=== PATIENT | male | born 1975 | race Caucasian/White ===

== ENCOUNTER 2025-01-01 23:35 | Day surgery (SDC) | payer BC, SELFPAY ==
[2025-01-01] VITALS (9 sets, daily range): BP systolic 144–167; BP diastolic 90–107; BMI 39.6; BMI 38.5
[2025-01-01 17:47] LABS: % Basophils 0.9 % (0-2); % Eosinophils 1.9 % (0-6); % Immature Granulocytes 0.2 % (0-0.5); % Lymphocytes 23.8 % (20.5-51.1); % Monocytes 8.7 % (1.7-9.3); % Neutrophils 64.5 % (42.2-75.2); Absolute Basophils 0.1 10^3/uL (0-0.2); Absolute Eosinophils 0.2 10^3/uL (0-0.7); Absolute Lymphocytes 2.5 10^3/uL (1.2-3.4); Absolute Monocytes 0.9 10^3/uL (0.1-0.6); Absolute Neutrophils 6.8 10^3/uL (1.4-6.5); Hematocrit 46.1 % (39.0-52.0); Hemoglobin 16.2 g/dL (13.0-18.0); Mean Corp Hgb Conc. 35.1 g/dL (33.0-37.0); Mean Corpuscular Hgb 29.8 pg (27.0-31.0); Mean Corpuscular Volume 84.9 fL (80.0-94.0); Mean Platelet Volume 10.2 fL (7.4-10.4); Nucleated Red Blood Cells % 0 % (-); Platelet Count 221 10^3/uL (130-400); Red Blood Cell Count 5.43 10^6/uL (4.70-6.10); Red Cell Dist. Width 13.3 % (11.5-14.5); White Blood Cell Count 10.5 10^3/uL (4.8-10.8)
[2025-01-01 18:04] LABS: ALT (SGPT) 23 U/L (0-50); AST (SGOT) 22 U/L (17-59); Albumin 4.4 g/dl (3.5-5.0); Alkaline Phosphatase 45 U/L (38-126); Blood Urea Nitrogen 18 mg/dl (9-20); Calcium 9.9 mg/dl (8.4-10.2); Carbon Dioxide 30 mmol/L (22-30); Chloride 105 mmol/L (98-107); Glucose 115 mg/dl (70-99); Lipase 90 U/L (23-300); Potassium 4.6 mmol/L (3.5-5.1); Sodium 141 mmol/L (135-145); Total Bilirubin 0.8 mg/dl (0.2-1.3); Total Protein 7.5 g/dl (6.3-8.2); eGFR > 60.00
--- NOTE | 2025-01-01 18:12 | ED.GENMED ---
History of Present Illness
<KVNG Camara - Last Filed: 01/01/25 22:41>
General
Chief Complaint: Abdominal Pain
Source: patient
Exam Limitations: none
Time Seen by Provider: 01/01/25 18:11
Nursing documentation reviewed up to this point in time: agreed with
History of Present Illness
History of Present Illness:
Patient is a 49-year-old male who presents to the ER for evaluation. Patient started with epigastric pain yesterday. He reports it kept him up throughout the night and persisted today. He does feel little nauseous with this. He now feels a
little bit in his right back. He denies any lower abdominal discomfort. Denies any vomiting diarrhea. Patient denies any urinary frequency urgency or dysuria. Denies any hematuria. He does report that he is on Mounjaro and this is his third
month on Mounjaro. He has had no issues so far.
Past History
<KVNG Camara - Last Filed: 01/01/25 22:41>
Past History
ED Past Medical History: Arrthythmia (SVT that was treated with radio ablation at age 15 with no further problems ), HTN and Other (Kidney stones, gallstones)
ED Past Surgical History: Cardiac (Radiofrequency ablation for SVT at age 15 )
Social History
Tobacco: Non-smoker
Alcohol: Occasional
Drug: Marijuana
Personal:
Living: with family
Employment: Employed
Family History
Family History: Negative Diabetes, Hypertension or CAD
Review of Systems
<KVNG Camara - Last Filed: 01/01/25 22:41>
Review of Systems
Allergies reviewed?: Yes
All Other Systems: ROS reviewed and negative except as documented in HPI and ROS
Constitutional: Reports no symptoms; Denies fever, fatigue or chills
EENT: Reports no symptoms
Respiratory: Reports no symptoms
ABD/GI: Reports abdominal pain and nausea; Denies vomiting, diarrhea or constipated
: Reports no symptoms
Musculoskeletal: Reports no symptoms
Skin: Reports no symptoms
Neurological: Reports no symptoms
Psychiatric: Reports no symptoms
Phy Exam
<KVNG Camara - Last Filed: 01/01/25 22:41>
General Physical Exam
General Presentation: no apparent distress
General age: appears stated age
General Skin: warm and dry
General Habitus: normal
General Mental: alert
General Hydration: appears well hydrated
Gastrointestinal Exam
Gastrointestinal Exam: soft and other (mild ruq tenderness )
Neurological Exam
Neurological Exam: alert and oriented x3
Musculoskeletal Exam
Musculoskeletal Exam: full ROM
Skin Exam
Skin Exam: normal color and warm/dry
Course
<KVNG Camara - Last Filed: 01/01/25 22:41>
Orders/Labs/Results
Orders:
Orders
01/01/25 17:35
Electrocardiogram (*1) Urgent
Reason for Study: Abdominal Pain
EKG- Treatment ONCE
01/01/25 17:39
Complete Blood Count/With Diff Urgent
Comprehensive Metabolic Panel Urgent
Lipase Urgent
Troponin I Urgent
01/01/25 18:19
IV Insert/Care/Rem.- Treatment PRN
0.9% Sodium Chloride 1000 ml [Nss] 1,000 ml IV BOLUS
Ketorolac [Toradol] 15 mg IV NOW STA
Ondansetron Injectable [Zofran] 4 mg IV NOW STA
US Abdomen Complete/Upper Urgent
Comment:
Reason For Exam: epigastric pain
01/01/25 20:33
Mag Hydrox/Al Hydrox/Simeth [Maalox] 30 ml Phenobarb/Hyoscy/Atropine/Scop [] 10 ml PO NOW
01/01/25 20:35
Mag Hydrox/Al Hydrox/Simeth [Maalox] 30 ml .ROUTE .STK-MED ONE
Phenobarb/Hyoscy/Atropine/Scop [] 10 ml .ROUTE .STK-MED ONE
01/01/25 22:34
Pantoprazole [Protonix IV] 40 mg IV NOW STA
Abnormal Lab Results
01/01/25
17:39
Absolute Neuts (auto) 6.8 H 10^3/uL
(1.4-6.5)
Absolute Monos (auto) 0.9 H 10^3/uL
(0.1-0.6)
Glucose 115 H mg/dl
(70-99)
01/01/25 17:39
01/01/25 17:39
Vital Signs
Initial and Last Documented VS:
Initial Vital Signs
Temp Pulse Resp BP Pulse Ox
97.7 F 71 18 161/107 97
01/01/25 17:32 01/01/25 17:32 01/01/25 17:32 01/01/25 17:32 01/01/25 17:32
Last Documented Vital Signs
Temp Pulse Resp BP Pulse Ox
98.4 F 58 14 151/98 96
01/01/25 18:00 01/01/25 20:42 01/01/25 20:42 01/01/25 20:42 01/01/25 20:42
<Aniket Pulliam MD - Last Filed: 01/01/25 22:31>
Orders/Labs/Results
Orders:
Orders
01/01/25 17:35
Electrocardiogram (*1) Urgent
Reason for Study: Abdominal Pain
EKG- Treatment ONCE
01/01/25 17:39
Complete Blood Count/With Diff Urgent
Comprehensive Metabolic Panel Urgent
Lipase Urgent
Troponin I Urgent
01/01/25 18:19
IV Insert/Care/Rem.- Treatment PRN
0.9% Sodium Chloride 1000 ml [Nss] 1,000 ml IV BOLUS
Ketorolac [Toradol] 15 mg IV NOW STA
Ondansetron Injectable [Zofran] 4 mg IV NOW STA
US Abdomen Complete/Upper Urgent
Comment:
Reason For Exam: epigastric pain
01/01/25 20:33
Mag Hydrox/Al Hydrox/Simeth [Maalox] 30 ml Phenobarb/Hyoscy/Atropine/Scop [] 10 ml PO NOW
01/01/25 20:35
Mag Hydrox/Al Hydrox/Simeth [Maalox] 30 ml .ROUTE .STK-MED ONE
Phenobarb/Hyoscy/Atropine/Scop [] 10 ml .ROUTE .STK-MED ONE
01/01/25 22:34
Pantoprazole [Protonix IV] 40 mg IV NOW STA
Abnormal Lab Results
01/01/25
17:39
Absolute Neuts (auto) 6.8 H 10^3/uL
(1.4-6.5)
Absolute Monos (auto) 0.9 H 10^3/uL
(0.1-0.6)
Glucose 115 H mg/dl
(70-99)
01/01/25 17:39
01/01/25 17:39
Vital Signs
Initial and Last Documented VS:
Initial Vital Signs
Temp Pulse Resp BP Pulse Ox
97.7 F 71 18 161/107 97
01/01/25 17:32 01/01/25 17:32 01/01/25 17:32 01/01/25 17:32 01/01/25 17:32
Last Documented Vital Signs
Temp Pulse Resp BP Pulse Ox
98.4 F 58 14 151/98 96
01/01/25 18:00 01/01/25 20:42 01/01/25 20:42 01/01/25 20:42 01/01/25 20:42
<KVNG Camara - Last Filed: 01/01/25 22:41>
MDM/Problems Addressed
Differential Diagnosis Includes:
not limited to: gastritis, biliary colic
MDM/Problems Addressed:
As documented patient is a 49-year-old male who presented with epigastric pain nausea with some radiation to right back since yesterday. Patient denies any fever chills presents in no acute distress labs unremarkable including normal LFTs normal
white count. He is afebrile ultrasound however does show cholelithiasis with at least 1 stone in the vicinity of the gallbladder neck gallbladder wall is top normal. Patient was given Toradol which did start to improve his symptoms but then
symptoms started reoccurring in addition he was given a GI cocktail which seemed to help again slightly but then symptoms reoccurred. After medications patient was reevaluated and does not feel that he would be able to sleep with this pain. It is
likely biliary colic versus gastritis, GERD with persistent pain would recommend admission. Patient was evaluated by ED physician. Will give IV Protonix.
<KVNG Camara - Last Filed: 01/01/25 22:41>
*Radiology
Radiology exam reviewed: radiology read reviewed
*Pulse Oximetry
Patient hypoxic: no
*Critical Care Note
Total Time (30-74mins, 75-104mins- exclusive of procedures): Not Applicable
ED Attending Note
<KVNG Camara - Last Filed: 01/01/25 22:41>
-
Portions of this chart may have been created with voice recognition software.� Occasional wrong word or��sound alike� substitutions may have occurred due to the inherent limitations of voice recognition software.
<Aniket Pulliam MD - Last Filed: 01/01/25 22:31>
ED Attending Note
Patient seen and examined by attending physician: Yes
I performed the substantive portion of visit, reviewed & personally made and approve the management plan that is documented in note by myself or DAVID.: Yes
ED Attending Note:
49-year-old male complaining of epigastric pain. Some radiation to the back. Started yesterday. Continuous. Moderate nature now this pain management. Some nausea. No chest pain shortness of breath or other complaints.
On exam patient is nontoxic in no distress. Lungs clear and equal. Heart regular rate and rhythm no murmur. Abdomen soft. No distention. Moderate epigastric tenderness. Minimal extension to the right upper quadrant. No rebound or guarding or
mass or hernia.
Labs are all stable. Cardiac testing stable. There is a stone that may be wedged in the neck of the gallbladder. Differential would include gastritis/abdominal symptoms possibly related to his medication versus a stone wedged in the neck of the
gallbladder. Given ongoing symptoms patient warrants inpatient management
Discharge Plan
Departure
Prescriptions:
No Action
lisinopril 10 MG tablet
10 mg PO DAILY
escitalopram oxalate 10 MG tablet
10 mg PO DAILY
Mounjaro 5 mg/0.5 mL Pen Injector
5 mg SC QWEEK
Referrals:
Luann Price, [Family Provider] -
Interventions
Interventions:
*Risk Screen - Suicide Last Done: 01/01/25 17:32
*General Assessment Last Done: 01/01/25 17:32
*Neglect/Abuse Screening Last Done: 01/01/25 17:32
*ED- Fall Risk Assessment Last Done: 01/01/25 18:41
*ED COVID-19 Vaccine History Last Done: 01/01/25 17:32
XL-Njhjzu-Nacolnemax Assessment Last Done: 01/01/25 18:41
Discharge Date and Time
Print Language: NORWEGIAN
[2025-01-01 18:15] LABS: Troponin I < 0.012 ng/ml
[2025-01-01] MEDS: TORADOL 15 MG IV (18:30)
[2025-01-01] MEDS: ZOFRAN 4 MG IV (18:30)
[2025-01-01] MEDS: NSS 1000 IV ×2 (18:30→23:55)
[2025-01-01] MEDS: MAALOX 40 PO (20:36)
[2025-01-01] MEDS: PROTONIX IV 40 MG IV (22:41)
--- NOTE | 2025-01-01 22:46 | HPS.HSE ---
Addendum entered and electronically signed by Fred Silva DO 01/01/25 23:49:
Patient seen and examined independently. Agree with findings and plan as set forth by Callie Diehl PA-C.
Patient is a 49y M with PMH significant for hypertension and obesity who presents to ED complaining of abdominal pain x 2 days. Patient states that [ain has been constant since yesterday AM. Pos nausea without emesis. No significant change in
severity / character of pain over the past 2 days. No prior h/o similar symptoms. No fevers / chills. Patient does take Mounjaro which he started about 2 months ago. Dose increase one month ago.
Ass:
Abdominal Pain
Cholelithiasis
Benign Hypertension
Generalized Anxiety
Obesity due to excess calories
Plan:
Observe overnight for further evaluation and treatment.
Symptoms seem more c/w gastritis with no colicky symptoms, abnormal LFTs, etc.
Possible impacted gallstone in GB neck on US.
Continue PPI.
Clear liquids as tolerated.
Follow for any new / worsening symptoms.
Consider further evaluation / HIDA scan if symptoms do not improve with supportive care.
Original Note:
Family Physician
-
Family Physician: Luann Price DO
Chief Complaint
-
Abdominal Pain
History of Present Illness
Patient is a 49 y/o male past medical history of hypertension, anxiety and obesity who presents with abdominal pain x 2 day. Pain started yesterday morning and worsened over the coarse of the day. Patient describes pain mostly in epigastric region
with radiation to the back. He states pain is constant and does not worsen with oral intake. He admits to associated nausea without vomiting. He denies diarrhea or constipation. He deneis fever, sweats or chills. He started Mounjaro about 2
months ago with increased dose about 4 weeks ago.
Medical History
Past Medical History
Past Medical History: Reports Other
Additional Past Medical History:
Essential Hypertension
Anxiety
Obesity
Past Surgical History: Reports None
Social History
Tobacco: Non-smoker
Alcohol: None
Family History
Family History: Not pertinent
Allergies / Home Medications
Allergies reflects when Allergies were last updated in [facility].
Home Medications with original date entered in [facility]
Allergy/Medication List:
Allergies
Allergy/AdvReac Type Severity Reaction Status Date / Time
No Known Allergies Allergy Verified 01/01/25 17:35
Home Medications
escitalopram oxalate 10 mg tablet 10 mg PO DAILY 06/04/21
lisinopril 10 mg tablet 10 mg PO DAILY 06/04/21
tirzepatide 5 mg/0.5 mL subcutaneous pen injector (Mounjaro) 5 mg SC QWEEK 01/01/25
Review of Systems
-
A 12 point ROS was completed and negative except as noted: Yes
Constitutional: Denies Fever
Respiratory: Denies Cough or Trouble Breathing
Cardiac: Denies Chest Pain or Palpitations
Abdomen/GI: Reports See HPI
Physical Exam
Vital Signs
Vital Signs
Temp Pulse Resp BP Pulse Ox
98.4 F 58 14 151/98 96
01/01/25 18:00 01/01/25 20:42 01/01/25 20:42 01/01/25 20:42 01/01/25 20:42
Physical Exam
General: Comfortable and Conversant
HEENT: Anicteric and Moist mucous membranes
Respiratory: Clear and Non Labored Respirations
Cardiac: S1/S2 and Regular Rhythm
GI: Soft and Tender (Mild epigastric and right upper quadrant tenderness without rebound or gaurding)
Rectal: Deferred by Provider
Musculoskeletal: No Clubbing, No Cyanosis and No Edema
Skin: Warm and Dry
Neuro: Awake, Alert, Oriented and Nonfocal/grossly intact
Psych: Calm
Laboratory Results
-
01/01/25 17:39
01/01/25 17:39
Laboratory Results
Total Bilirubin 0.8 mg/dl (0.2-1.3) 01/01/25 17:39
AST 22 U/L (17-59) 01/01/25 17:39
ALT 23 U/L (0-50) 01/01/25 17:39
Alkaline Phosphatase 45 U/L (38-126) 01/01/25 17:39
Troponin I < 0.012 ng/ml 01/01/25 17:39
Lipase 90 U/L (23-300) 01/01/25 17:39
Data Reviewed
-
Ultrasound: Report Reviewed by me
Lab Data: Labs Reviewed by me
Impression/Plan
-
Abdominal Pain suspect Gastritis
-Abd US with cholelithiasis however description of pain does not seem consistent with biliary colic
-Allow clear liquids
-Continue Protonix 40mg IV BID
Essential Hypertension
-Continue lisinopril
Anxiety
-Continue Lexapro
Class II Obesity
-Hold Mounjaro
DVT proph: SCDs
Code Status: Full Code
[2025-01-02] MEDS: TYLENOL 650 MG PO (00:30)
[2025-01-02] MEDS: ZOFRAN 4 MG IV ×2 (00:30→19:46)
[2025-01-02] MEDS: TORADOL 15 MG IV ×3 (00:30→19:37)
[2025-01-02] MEDS: MORPHINE SULFATE 1 MG IV (05:35)
[2025-01-02 06:19] LABS: Hematocrit 44.2 % (39.0-52.0); Hemoglobin 15.2 g/dL (13.0-18.0); Mean Corp Hgb Conc. 34.4 g/dL (33.0-37.0); Mean Corpuscular Hgb 29.2 pg (27.0-31.0); Mean Platelet Volume 11.6 fL (7.4-10.4); Platelet Count 212 10^3/uL (130-400); White Blood Cell Count 12.4 10^3/uL (4.8-10.8)
[2025-01-02 06:45] LABS: ALT (SGPT) 21 U/L (0-50); AST (SGOT) 22 U/L (17-59); Alkaline Phosphatase 46 U/L (38-126); Blood Urea Nitrogen 14 mg/dl (9-20); Calcium 8.9 mg/dl (8.4-10.2); Carbon Dioxide 25 mmol/L (22-30); Chloride 105 mmol/L (98-107); Estimated Creatinine Clearance > 125 ml/min; Glucose 90 mg/dl (70-99); Potassium 4.4 mmol/L (3.5-5.1); Sodium 140 mmol/L (135-145); Total Bilirubin 1.1 mg/dl (0.2-1.3); Total Protein 6.7 g/dl (6.3-8.2); eGFR > 60.00
[2025-01-02 07:05] VITALS: BP 136/71
[2025-01-02] MEDS: LEXAPRO 10 MG PO (07:22)
[2025-01-02] MEDS: PROTONIX IV 40 MG IV ×2 (07:23→19:38)
[2025-01-02] MEDS: NSS (PRESERVATIVE FREE) 10 ML IV ×2 (07:23→19:38)
[2025-01-02] MEDS: ZESTRIL 10 MG PO (07:23)
--- NOTE | 2025-01-02 09:17 | W.PN.HOSP.TC ---
Addendum entered and electronically signed by Justin Sosa DO 01/02/25 13:43:
CT shows cholelithiasis and possible cholecystitis. No pancreatic changes. No biliary ductal dilation.
Will consult general surgery. Discussed with GI service.
Original Note:
Today's Communication/Plan
-
GI consult
Assessment / Plan
Assessment / Plan
Gen-AAOx3, NAD
HEENT-NC, AT, anicteric, clear oral mm
Neck-supple
CV-reg, no M, +S1/S2
Lungs-clear B/L
Abd-soft, NT, ND
Ext-no edema
Musculoskeletal-no cyanosis, clubbing
Skin-warm and dry
Neuro-grossly non-focal
Psych-calm, cooperative
Abdominal pain/nausea -biliary colic seems less likely with normal LFTs. Afebrile, mild leukocytosis noted. Nontender in the right upper quadrant currently. Abdominal ReSound shows cholelithiasis with at least 1 stone in the vicinity of the
gallbladder neck. No biliary ductal dilation, negative sonographic Rodriguez sign.
Lipase normal. Unclear if he has gastritis or other etiology. Will consult GI. Currently on clear liquid diet.
DM2 without hyperglycemia -on Mounjaro 5 mg subcu weekly, has received 3 doses so far. Gallstones predated initiation of Mounjaro.
Essential pretension -blood pressure elevated on arrival, now improved. Continue lisinopril.
MARSHA
Morbid obesity due to excess calories
Full code
Anticipated Discharge: 24 - 48 hours
Subjective/Interval History
-
Date of Service: January 02, 2025
Patient seen and examined. Complaining of epigastric fullness, improved compared to yesterday.
Objective Data
-
Labs:
Laboratory Results
01/02/25
04:25
WBC 12.4 H
Hgb 15.2
Hct 44.2
Plt Count 212
Sodium 140
Potassium 4.4
Chloride 105
Carbon Dioxide 25
BUN 14
Creatinine 0.7
Glucose 90
Calcium 8.9
Total Bilirubin 1.1
AST 22
ALT 21
Alkaline Phosphatase 46
Vital Signs:
Vital Signs
Temp Pulse Resp BP Pulse Ox
98.7 F 65 16 136/71 97
01/02/25 07:05 01/02/25 07:23 01/02/25 07:05 01/02/25 07:23 01/02/25 07:05
Review of Systems
-
History Source: Patient
All other systems: Reviewed and negative
--- NOTE | 2025-01-02 09:47 | CON.GI ---
Consultation
-
Date/Time Consultation Requested: 01/02/2025
Date/Time Consultation Performed: 01/02/2025
Requesting Provider: Dr. Sosa
Performing Provider: Dr. George
Reason for Consultation: Epigastric pain
Medical History
Chief Complaint / HPI
Chief Complaint: Abdominal pain
History of Present Illness:
Sherman is a 49-year-old male with history of hypertension and obesity who comes in with 2 days of abdominal pain that has been constant with associated nausea without vomiting and worse with eating with a persistent sore squeezing/knot like pain in
the epigastric area that radiates into the back. It is progressed over the past 2 days and has prevented him from sleeping. Worse after eating. He has never had pain like this before.. Started Mounjaro 2 months ago with a dose increase 1 month
ago with expected 17 pound weight loss. Labs include a mild leukocytosis of 12.4, no anemia with a hemoglobin of 15, normal CMP with ALT of 21, total bilirubin of 1.1, alkaline phosphatase 46 lipase of 90. Patient underwent an ultrasound on
01/01/2025 showing a normal-sized liver with increased echogenicity consistent with fatty liver with no hepatoma. No ductal dilatation. Gallbladder has stones as well as 1 stone in the vicinity of the gallbladder neck with some sludge. Gallbladder
wall is 0.3 cm with a negative Rodriguez sign with a common bile duct that is normal. Spleen is normal in size
States he had an endoscopy and esophageal manometry at [facility] about 5 years ago and was told he has achalasia but he has no dysphagia. Has no heartburn or reflux and is not on PPI at home.
His last colonoscopy was about 3 years ago for surveillance of polyps. All of this has been done downtown at [facility].
He has noticed some mild constipation since starting the GLP-1 medication and is not taking anything at home.
Past Medical History
Past Medical History: Other (Anxiety, obesity, hypertension)
Past Surgical History: None
Social History
Tobacco: Non-Smoker
Alcohol: None
Drug: None
Personal:
Living: With Family
Employment: Employed
Family History
Family History: Other (Colon polyps)
Allergies / Home Medications
Allergy/AdvReac Type Severity Reaction Status Date / Time
No Known Allergies Allergy Verified 01/01/25 17:35
�Medication �Instructions �Recorded
escitalopram oxalate 10 mg tablet 10 mg PO DAILY 06/04/21
lisinopril 10 mg tablet 10 mg PO DAILY 06/04/21
tirzepatide 5 mg/0.5 mL 5 mg SC QWEEK 01/01/25
subcutaneous pen injector
(eSna)
Review of Systems
-
All other systems: A 12 pt ROS was Negative except as stated above in HPI
Vital Signs
Temp Pulse Resp BP Pulse Ox
98.7 F 65 16 136/71 97
01/02/25 07:05 01/02/25 07:23 01/02/25 07:05 01/02/25 07:23 01/02/25 07:05
Physical Exam
Exam
General: Well Developed, Well Nourished and No Apparent Distress
Respiratory: Clear
Cardiac: S1/S2
GI: Soft and Tender (Right upper quadrant and epigastric area)
Neuro: AO x 3
Psych: Calm
Results
WBC 12.4 10^3/uL (4.8-10.8) H 01/02/25 04:25
Hgb 15.2 g/dL (13.0-18.0) 01/02/25 04:25
Hct 44.2 % (39.0-52.0) 01/02/25 04:25
MCV 85.0 fL (80.0-94.0) 01/02/25 04:25
Plt Count 212 10^3/uL (130-400) 01/02/25 04:25
Absolute Neuts (auto) 6.8 10^3/uL (1.4-6.5) H 01/01/25 17:39
Sodium 140 mmol/L (135-145) 01/02/25 04:25
Potassium 4.4 mmol/L (3.5-5.1) 01/02/25 04:25
Chloride 105 mmol/L (98-107) 01/02/25 04:25
Carbon Dioxide 25 mmol/L (22-30) 01/02/25 04:25
BUN 14 mg/dl (9-20) 01/02/25 04:25
Creatinine 0.7 mg/dL (0.7-1.3) 01/02/25 04:25
Calcium 8.9 mg/dl (8.4-10.2) 01/02/25 04:
Total Bilirubin 1.1 mg/dl (0.2-1.3) 01/02/25 04:25
AST 22 U/L (17-59) 01/02/25 04:25
ALT 21 U/L (0-50) 01/02/25 04:25
Alkaline Phosphatase 46 U/L (38-126) 01/02/25 04:25
Lipase 90 U/L (23-300) 01/01/25 17:39
Diagnostic Image Results:
ultrasound on 01/01/2025 showing a normal-sized liver with increased echogenicity consistent with fatty liver with no hepatoma. No ductal dilatation. Gallbladder has stones as well as 1 stone in the vicinity of the gallbladder neck with some sludge.
Gallbladder wall is 0.3 cm with a negative Rodriguez sign with a common bile duct that is normal. Spleen is normal in size
Prior GI Procedures:
EGD: Subjectively at [facility] roughly 5 years ago as well as an esophageal manometry showing achalasia
Colonoscopy: 2011, colonoscopy with Dr. Obando. Good prep to the cecum. Patient had left-sided hyperplastic polyps and a 1 cm transverse questionable sessile serrated polyp removed.
Assessment / Plan
-
Sherman is a 49-year-old male with history of benign colon polyps followed at [facility], obesity on Mounjaro for the past 2 months with appropriate 17 pound weight loss who comes in with first time but persistent 2 days of knot/squeezing constant
epigastric pressure that radiates into the back gets worse after eating with normal LFTs and an ultrasound showing a stone in the cystic duct but no cholecystitis on ultrasound
# Epigastric pain radiating to the back on GLP-1
-- Cholecystitis versus pancreatitis versus esophagitis versus gastric ulcer
-- Twice daily PPI started. Not on 1 at home
-- Lipase was normal but will get a CAT scan to better elucidate etiology
-- Concern for biliary disease especially with being on a GLP-1 medication
-- Clear liquids for now as pain is exacerbated by eating
-- Check LFTs tomorrow
-- Based on imaging considering surgical consult
Data Reviewed
-
Ultrasound: Image Personally Visualized and interpreted and Report Reviewed by me
Old Records: Reviewed
-
-
Thank you for consultation and allowing me to participate in the patient's care. Please call the environmental engineering assistant GI physician during the after hours with any questions or concerns.
[2025-01-02] MEDS: OMNIPAQUE 50 ML PO (10:18)
[2025-01-02] MEDS: NSS 1000 IV ×2 (10:18→21:58)
--- NOTE | 2025-01-02 11:34 | CM ---
Patient seen at bedside in [address] [place] [address]. Patient stated that he lives alone; in a 2 story home. Patient PCP is Dr. Ivan and [facility] [place] [address] Patient has a CPAP at home that he does use. Patient has no other DME.
Patient states he is for further imaging and possible surgery. Patient plan is for discharge home with no needs, pending further medical work up. CM will continue to follow for discharge planning needs.
Plan; home with no needs pending functional statu/medical work up still in progress
[2025-01-02 15:29] VITALS: BP 156/95
[2025-01-02 23:13] VITALS: BP 150/94
[2025-01-03] VITALS (11 sets, daily range): BP systolic 0–150; BP diastolic 68–90
[2025-01-03] MEDS: TORADOL 15 MG IV (01:16)
[2025-01-03 06:17] LABS: % Basophils 0.5 % (0-2); % Eosinophils 1.1 % (0-6); % Immature Granulocytes 0.4 % (0-0.5); % Lymphocytes 21.1 % (20.5-51.1); % Monocytes 11.6 % (1.7-9.3); % Neutrophils 65.3 % (42.2-75.2); Absolute Basophils 0.1 10^3/uL (0-0.2); Absolute Eosinophils 0.1 10^3/uL (0-0.7); Absolute Lymphocytes 2.2 10^3/uL (1.2-3.4); Absolute Monocytes 1.2 10^3/uL (0.1-0.6); Absolute Neutrophils 6.8 10^3/uL (1.4-6.5); Hematocrit 43.2 % (39.0-52.0); Hemoglobin 14.8 g/dL (13.0-18.0); Mean Corp Hgb Conc. 34.3 g/dL (33.0-37.0); Mean Corpuscular Hgb 29.5 pg (27.0-31.0); Mean Corpuscular Volume 86.2 fL (80.0-94.0); Mean Platelet Volume 11.4 fL (7.4-10.4); Nucleated Red Blood Cells % 0 % (-); Platelet Count 176 10^3/uL (130-400); Red Blood Cell Count 5.01 10^6/uL (4.70-6.10); Red Cell Dist. Width 13.1 % (11.5-14.5); White Blood Cell Count 10.5 10^3/uL (4.8-10.8)
[2025-01-03 06:59] LABS: ALT (SGPT) 19 U/L (0-50); AST (SGOT) 20 U/L (17-59); Albumin 4.1 g/dl (3.5-5.0); Alkaline Phosphatase 50 U/L (38-126); Blood Urea Nitrogen 7 mg/dl (9-20); Calcium 8.4 mg/dl (8.4-10.2); Carbon Dioxide 26 mmol/L (22-30); Chloride 104 mmol/L (98-107); Estimated Creatinine Clearance > 125 ml/min; Glucose 98 mg/dl (70-99); Potassium 4.3 mmol/L (3.5-5.1); Sodium 140 mmol/L (135-145); Total Bilirubin 1.6 mg/dl (0.2-1.3); Total Protein 6.6 g/dl (6.3-8.2); eGFR > 60.00
[2025-01-03] MEDS: NSS (PRESERVATIVE FREE) 10 ML IV ×2 (07:04→20:40)
[2025-01-03] MEDS: LEXAPRO 10 MG PO (07:04)
[2025-01-03] MEDS: PROTONIX IV 40 MG IV ×2 (07:04→20:40)
[2025-01-03] MEDS: MIRALAX 17 GRAMS PO (07:04)
[2025-01-03] MEDS: ZESTRIL 10 MG PO (07:05)
[2025-01-03] MEDS: NSS 1000 IV (09:48)
[2025-01-03] MEDS: ZOSYN 50 IV ×2 (09:48→21:24)
--- NOTE | 2025-01-03 10:33 | W.SUR.PREOP ---
Pre-Operative Surgical Note
-
I have examined this patient prior to the performance of the scheduled procedure.
The patient's condition is unchanged from the time of the current History and
Physical and the patient is able to undergo the scheduled procedure.
--- NOTE | 2025-01-03 10:33 | CON.GS ---
Consultation
-
Date/Time Consultation Requested: 01/02/2025
Date/Time Consultation Performed: 01/03/2025
Requesting Provider: Dr. Sosa
Performing Provider: Dr. Michael
Reason for Consultation: Epigastric pain in the setting of gallstones
Medical History
-
Chief Complaint: Upper abdominal pain
History of Present Illness:
This is a 49-year-old with a history of hypertension and obesity recently started on Mounjaro who presents with 2 days of upper abdominal pain rating across the epigastrium to his back. The pain has improved over the past several hours and he is no
longer tender. The patient denies Fever, Chest Pain, Shortness Of Breath, Nausea, Vomiting, changes in urinary and bowel habits, unintentional weight loss, jaundice, icterus, acolic stools.
Last Endoscopy: Roughly 5 years ago, told he has achalasia?
Last colonoscopy: Roughly 3 years ago, A few polyps
Past Medical History
Past Medical History: Other (Anxiety, obesity, hypertension)
Past Surgical History: None
Social History
Tobacco: Non-Smoker
Alcohol: None
Drug: None
Personal:
Living: With Family
Employment: Employed
Family History
Family History: Reviewed & Not Pertinent
Allergies / Home Medications
Allergy/AdvReac Type Severity Reaction Status Date / Time
No Known Allergies Allergy Verified 01/01/25 17:35
�Medication �Instructions �Recorded �Confirmed �Type
escitalopram oxalate 10 mg tablet 10 mg PO DAILY 06/04/21 01/01/25 History
lisinopril 10 mg tablet 10 mg PO DAILY 06/04/21 01/01/25 History
tirzepatide 5 mg/0.5 mL 5 mg SC QWEEK 01/01/25 01/01/25 History
subcutaneous pen injector
(Mounjaro)
Review of Systems
-
All other systems: Negative unless noted
A 10 point review of systems was completed, and was negative except as per HPI.
Physical Exam
Vital Signs
Temp Pulse Resp BP Pulse Ox
98.5 F 69 16 150/88 95
01/03/25 07:03 01/03/25 07:05 01/03/25 07:03 01/03/25 07:05 01/03/25 07:03
01/02/25 01/03/25 01/04/25
06:59 06:59 06:59
Actual Weight 121.79 kg
Body Mass Index (BMI) 38.5
Lab Results
01/03/25 05:27
01/03/25 05:27
WBC 10.5 10^3/uL (4.8-10.8) 01/03/25 05:27
Hgb 14.8 g/dL (13.0-18.0) 01/03/25 05:27
Hct 43.2 % (39.0-52.0) 01/03/25 05:27
Plt Count 176 10^3/uL (130-400) 01/03/25 05:27
Abs Immat Gran (auto) 0.0 10^3/uL (0-0.05) 01/03/25 05:27
Neutrophils % 65.3 % (42.2-75.2) 01/03/25 05:27
Physical Exam
General: Well Developed
HEENT: Normocephalic
Respiratory: Non Labored Respirations
GI: Soft, Non Tender, Non Distended and Obese
Data Reviewed
-
Ultrasound: Image Personally Visualized and interpreted, Report Reviewed by me, Discussed with Physician and Discussed with Patient
Total Time Spent with Patient (in minutes): 30
Assessment / Plan
-
This is a 49-year-old male who presents with a 2-day history of abdominal pain and large gallstone in the neck of the gallbladder concerning for biliary colic versus early acute cholecystitis.
Will plan for laparoscopic cholecystectomy with cholangiogram in the OR today versus tomorrow pending or availability.
N.p.o., IV fluids, IV antibiotics ordered.
Risks/Benefits/Alternatives, expected postoperative course and possible complications (bleeding, infection, injury to surrounding structures, acute/chronic pain) discussed at length. Patient wishes to proceed with surgery. All questions answered.
Consent obtained.
I spent 75 minutes in total for the care of this patient today including direct patient care and counseling, reviewing labs, imaging, coordination of care, as well as documentation.
--- NOTE | 2025-01-03 10:54 | W.PN.GI.CBS2 ---
Today's Communication / Plan
-
-- GI signing off
-- Suppository for constipation
-- Surgery should call us if there is a retained stone
Assessment / Plan
-
Sherman is a 49-year-old male with history of benign colon polyps followed at [facility], obesity on Mounjaro for the past 2 months with appropriate 17 pound weight loss who comes in with first time but persistent 2 days of knot/squeezing constant
epigastric pressure that radiates into the back gets worse after eating with normal LFTs and an ultrasound showing a stone in the cystic duct but no cholecystitis on ultrasound
# Epigastric pain radiating to the back on GLP-1
-- Cholecystitis versus pancreatitis versus esophagitis versus gastric ulcer -based on imaging and clinical picture more likely cholecystitis
--Surgical consult done and is going for OR either today or tomorrow
-- Twice daily PPI started. Not on 1 at home -upon discharge would send him home on once daily for 1 month then up to his primary GI doc
-- Concern for biliary disease especially with being on a GLP-1 medication -he can continue the GLP-1 medication postop
--Total bili went up slightly. Dr. Trinidad going to do an IOC and let us know if there is a retained stone
-- GI will sign off. We will come back if there is a retained stone
Subjective
Subjective
Date of Service: January 03, 2025
Patient without any significant pain but did have some discomfort after Jell-O and broth yesterday. Has not had a bowel movement in 4 days and feeling a little discomfort in the rectum. Plans are for cholecystectomy today or tomorrow with
Alec
Objective
Data Reviewed
Laboratory Data:
Laboratory Results
01/03/25 05:27
01/03/25 05:27
Laboratory Results
Total Bilirubin 1.6 mg/dl (0.2-1.3) H 01/03/25 05:27
AST 20 U/L (17-59) 01/03/25 05:27
ALT 19 U/L (0-50) 01/03/25 05:27
Alkaline Phosphatase 50 U/L (38-126) 01/03/25 05:27
Lipase 90 U/L (23-300) 01/01/25 17:39
Vital Signs and I&O:
Vital Signs
Temp Pulse Resp BP Pulse Ox
98.5 F 69 16 150/88 95
01/03/25 07:03 01/03/25 07:05 01/03/25 07:03 01/03/25 07:05 01/03/25 07:03
I&O
01/02/25 01/03/25 01/04/25
06:59 06:59 06:59
Intake Total 1060 / 1060
Balance 1060 / 1060
Physical Exam
Physical Exam
HEENT: Anicteric
GI: Soft and Non Tender (Minimal tenderness)
Extremities: No Edema
Neuro: Non Focal
[2025-01-03] MEDS: DULCOLAX 10 MG RECTAL (11:21)
--- NOTE | 2025-01-03 11:52 | W.PN.HOSP.TC ---
Today's Communication/Plan
-
Lap penny with IOC per GS
Assessment / Plan
Assessment / Plan
Assessment:
RUQ pain, biliary colic vs acute calculous cholecystitis
- US: Cholelithiasis with at least one stone seen in the vicinity of the gallbladder neck. Gallbladder wall top normal. Negative sonographic Rodriguez's sign. No findings to suggest biliary tract dilatation.
- CT: Cholelithiasis. Cannot exclude some mild gallbladder wall thickening/pericholecystic fluid. No findings to suggest biliary tract dilatation.
- GI and GS evaluated
- laparoscopic cholecystectomy with cholangiogram planned - today vs tomorrow pending OR availability
- continue NPO/IVF
- pain control and anti-emetics
- continue IV abx per GS
DM2 without hyperglycemia
- on Mounjaro 5 mg subcu weekly, has received 3 doses so far. Gallstones predated initiation of Mounjaro.
Essential HTN
- continue Lisinopril
MARSHA
DVT ppx: SCDs
Code: Full
Anticipated Discharge: 24 - 48 hours
Subjective/Interval History
-
Date of Service: January 03, 2025
some rectal discomfort from constipation
pain is mild
no nausea
Objective Data
-
Labs:
Laboratory Results
01/03/25
05:27
WBC 10.5
Hgb 14.8
Hct 43.2
Plt Count 176
Sodium 140
Potassium 4.3
Chloride 104
Carbon Dioxide 26
BUN 7 L
Creatinine 0.7
Glucose 98
Calcium 8.4
Total Bilirubin 1.6 H
AST 20
ALT 19
Alkaline Phosphatase 50
Vital Signs:
Vital Signs
Temp Pulse Resp BP Pulse Ox
98.5 F 69 16 150/88 95
01/03/25 07:03 01/03/25 07:05 01/03/25 07:03 01/03/25 07:05 01/03/25 07:03
I&O
01/02/25 01/03/25 01/04/25
06:59 06:59 06:59
Intake Total 1060 / 1060
Balance 1060 / 1060
Physical Exam
-
General: No Apparent Distress
HEENT: Normocephalic and Atraumatic
Respiratory: Negative Wheezes
Cardiac: Regular Rhythm and S1/S2
GI: Distended (minimal to RUQ)
Genito-urinary: No Costovertebral Tender
Neuro: AO x 3
Psych: Calm
Data Reviewed
-
Total Time Spent with Patient (in minutes): 42
Labs: Labs Reviewed by me
--- NOTE | 2025-01-03 12:11 | CM ---
CM following re: discharge planning.
Reviewed pt's chart, met with pt.
Per , Lap cholecystectomy with IOC today, continue supportive care.
Pt lives alone in a 2SH and pt described himself as independent in all areas [employer].
D/C plan: home with no after care VN needs.
CM will follow with discharge plan updates as needed.
[2025-01-03] MEDS: ZOSYN IV (16:55)
--- NOTE | 2025-01-03 19:06 | W.IMMPOSTOP ---
Surgical Immed Post Op Note
-
Primary Surgeon: Teo Michael MD
Assisting Surgeon: None
Pre-op Diagnosis: Acute cholecystitis
Post-op Diagnosis: Same
Procedure Performed: Laparoscopic cholecystectomy with cholangiogram
Anesthesia Type: General
Specimen / Cultures: Gallbladder and contents
Estimated Blood Loss: 73 cc
Complications: None
Operative Findings: Markedly distended and inflamed gallbladder with hydrops and infected bile. Critical view of safety obtained prior to cholangiogram which demonstrated normal biliary anatomy and no distal filling defects. Some spillage of bile
but no stones. The patient seem to have a single large roughly 3 cm gallstone in the neck of the gallbladder that was morcellated after dividing the elongated gated gallbladder and half. The epigastric port site was closed with 2 [id number] 0
PDS sutures.
POST OP PLAN:
Imaging: None
Labs: Routine AM
Diet: Clears, advance tomorrow pending clinical course
Analgesia: Tylenol 650mg q6 Salma, Bijal 5mg q6 PRN, Dilaudid 0.5mg q2h PRN
Neuro/vascular checks: q4h
AC/AP: Hold Therapeutic AC, Ok for DVT PPx
Activity: Ad Tatianna
Wound/Incisions/Drains: Routine, XIN to bulb suction.
Abx: will plan for 4 days postoperative antibiotics
Dispo: RNF
--- NOTE | 2025-01-03 19:13 | OR.RPT ---
Operative Report
Operative Report
Patient Name: Sherman Matthew
: 1975
Date of Operation: 01/03/2025
Preoperative Diagnosis: Acute cholecystitis
Postoperative Diagnosis: Same
Procedure(s):
Laparoscopic Cholecystectomy with Cholangiogram
Surgeon(s):
Dr. Michael
[place] Operator(s):
ISAAC Du
Anesthesia: General
Estimated Blood Loss: 73 cc
Urine Output: None
Drains/Lines/Implants: 19 Faroese round Bin drain
Specimens:
1. Gallbladder and contents
HPI/Surgical Indications:
This is a 49-year-old male who presents with several days of right upper quadrant abdominal pain. Exam, labs and imaging are consistent with acute cholecystitis. Risks/Benefits/Alternatives were discussed at length, and the patient agreed to proceed
with surgery.
Operative Findings: Markedly distended and inflamed gallbladder with hydrops and infected bile. Critical view of safety obtained prior to cholangiogram which demonstrated normal biliary anatomy and no distal filling defects. Some spillage of bile
but no stones. The patient seem to have a single large roughly 3 cm gallstone in the neck of the gallbladder that was morcellated after dividing the elongated gated gallbladder and half. The epigastric port site was closed with 2 [id number] 0
PDS sutures.
Procedure Description:
The patient was brought to the Operating Room and placed in the supine position with one arm tucked. Following uneventful induction of general endotracheal anesthesia, an orogastric tube was placed. The abdomen was prepped and draped in the usual
sterile fashion. A timeout was performed confirming the procedure, consent, and that IV antibiotics were infused and sequential compression devices were confirmed to be on. The abdomen was entered using a left subcostal Veress technique which
required a single pass followed by a 5 mm right upper quadrant Optiview trocar. Pneumoperitoneum to 15 mmHg pressure was obtained without difficulty and we confirmed that no injury had occurred during our entry. The patient was positioned in
reverse Trendelenberg and rotated with the right side up slightly. Two 5 mm trocars were then placed along the right subcostal margin, followed by a 12 mm port in the epigastrium. The gallblad which was markedly distended and inflamed pelon was
emptied using a decompressing needle through the fundus of the gallbladder with evacuation of hydrops before A locking grasping forceps was placed on the fundus of the gallbladder where it was then retracted cephalad and to the right. Using
appropriate grasping instruments, the peritoneum overlying the triangle of Calot was incised and extended superiorly on both the anterior and posterior gallbladder fisher. The infundibulum was dissected off the cystic plate. The cystic triangle was
dissected until a critical view of safety was achieved. The cystic artery was medialized, dissected and controlled with 2 proximal clips and 1 distal. The cystic duct/gallbladder junction in turn was identified, dissected circumferentially and a
clip was placed. A ductotomy was made and a cholangiocatheter on an Carrion clamp was inserted into the cystic duct. A C-arm was draped and brought into the field. An intra-operative cholangiogram was performed and was noted to have:
No filling defects in the biliary tree
No significant biliary dilation
Brisk flow of contrast into the duodenum
Normal biliary anatomy
The catheter was then removed and the cystic duct was controlled with a clip followed by a 0 PDS Endoloop. After ensuring both the artery and duct were divided, the gallbladder was freed from the liver using electrocautery. There was significant
spillage of infected bile but no stones. The gallbladder bed was inspected and excellent hemostasis was obtained. The gallbladder was extracted through the epigastric 12 mm trocar site using an endocatch bag. This site had to be enlarged slightly.
A large nearly 3 cm gallstone was palpated so the gallbladder was divided and using Kellys and an empty ring forcep clamp the gallstone was morcellated to allow for extraction without significantly enlarging his epigastric port site. The abdomen
was again irrigated and excellent hemostasis was assured. Given the inflammatory nature of the case Surgiflo was placed over the lencho hepatis and along the gallbladder fossa. A 19 Faroese round Bin drain was also introduced through the right
lateralmost port and secured at the skin with a 3-0 nylon suture after placing it across our surgical bed. All remaining trocars were then removed and the pneumoperitoneum was evacuated. The 12 mm trocar site was closed using 0 PDS suture
[id number]'s x 2. All trocar sites were closed at the skin level using 4-0 Monocryl followed by Dermabond. Overall, the patient tolerated the procedure well and was taken to the Recovery Room postoperatively in stable condition.
I was the attending physician and performed the procedure with assistance from the AGRICULTURAL AGENT above. I was present for all portions of the case, excluding skin closure.
Teo Michael MD
--- NOTE | 2025-01-03 21:30 | PTCARENOTE ---
Received patient from PACU. AAOx3. Stable vitals. 4 lap site on abdomen KEELY/ intact. Right lower XIN drain site CDI. No pain currently. POC reviewed with patent.
[2025-01-04 03:10] VITALS: BP 151/91
[2025-01-04] MEDS: ZOSYN 50 IV ×2 (04:11→10:28)
[2025-01-04 06:44] LABS: Hematocrit 42.9 % (39.0-52.0); Hemoglobin 14.7 g/dL (13.0-18.0); Mean Corp Hgb Conc. 34.3 g/dL (33.0-37.0); Mean Corpuscular Hgb 29.6 pg (27.0-31.0); Mean Corpuscular Volume 86.5 fL (80.0-94.0); Mean Platelet Volume 11.5 fL (7.4-10.4); Platelet Count 184 10^3/uL (130-400); Red Blood Cell Count 4.96 10^6/uL (4.70-6.10); Red Cell Dist. Width 13.2 % (11.5-14.5); White Blood Cell Count 13.2 10^3/uL (4.8-10.8)
[2025-01-04 07:02] LABS: ALT (SGPT) 35 U/L (0-50); AST (SGOT) 36 U/L (17-59); Albumin 4.2 g/dl (3.5-5.0); Alkaline Phosphatase 57 U/L (38-126); Blood Urea Nitrogen 10 mg/dl (9-20); Calcium 8.4 mg/dl (8.4-10.2); Carbon Dioxide 26 mmol/L (22-30); Chloride 102 mmol/L (98-107); Estimated Creatinine Clearance > 125 ml/min; Glucose 131 mg/dl (70-99); Sodium 140 mmol/L (135-145); Total Bilirubin 1.2 mg/dl (0.2-1.3); Total Protein 6.8 g/dl (6.3-8.2); eGFR > 60.00
[2025-01-04 07:03] VITALS: BP 150/89
[2025-01-04] MEDS: LEXAPRO 10 MG PO (07:24)
[2025-01-04] MEDS: ZESTRIL 10 MG PO (07:24)
[2025-01-04] MEDS: NSS (PRESERVATIVE FREE) 10 ML IV (07:24)
[2025-01-04] MEDS: PROTONIX IV 40 MG IV (07:25)
[2025-01-04] MEDS: MIRALAX 17 GRAMS PO (07:28)
[2025-01-04] MEDS: TORADOL 15 MG IV (07:38)
--- NOTE | 2025-01-04 08:03 | W.PN.GS2 ---
Today's Communication / Plan
-
Dispo planning
Assessment / Plan
-
This is a 49-year-old male postoperative day 1 from a laparoscopic cholecystectomy and cholangiogram for acute cholecystitis. Doing well, expected postoperative course.
Will DC home with a XIN, needs XIN drain teaching.
Discharge instructions updated
Time Spent
Total Time Spent with Patient (in minutes): 20
Subjective Data
-
Date of Service: January 04, 2025
Interval Events:
No acute events overnight. Slept well. Pain Controlled. Denies Nausea/Vomiting, +bowel function. Tolerating diet.
Objective Data
-
Intake and Output
01/03/25 01/04/25 01/05/25
06:59 06:59 06:59
Intake Total 1060 / 1060 50 / 50
Output Total 0 / 0
Balance 1060 / 1060 50 / 50
Intake:
Oral fluids 1060 / 1060
IV fluids (Total) 0 / 0 50 / 50
Normosal 50 / 50
IV piggybacks 0 / 0
Output:
Drain Output (Total) 0 / 0
Right Abdomen Pancho-Huerta 0 / 0
Other:
Number of approximated MODERATE 1 2
amounts of urine
Vital Signs
Temp Pulse Resp BP Pulse Ox
98.2 F 70 18 151/91 96
01/04/25 03:10 01/04/25 03:10 01/04/25 03:10 01/04/25 03:10 01/04/25 03:10
Lab Results
01/04/25 05:43
01/04/25 05:43
Calcium 8.4 mg/dl (8.4-10.2) 01/04/25 05:43
Total Bilirubin 1.2 mg/dl (0.2-1.3) 01/04/25 05:43
AST 36 U/L (17-59) 01/04/25 05:43
ALT 35 U/L (0-50) 01/04/25 05:43
Alkaline Phosphatase 57 U/L (38-126) 01/04/25 05:43
Total Protein 6.8 g/dl (6.3-8.2) 01/04/25 05:43
Albumin 4.2 g/dl (3.5-5.0) 01/04/25 05:43
Physical Exam
-
GENERAL/NEURO: Awake, Alert, no distress
CHEST: Unlabored breathing on RA
ABDOMEN: Soft, appropriately tender, nondistended, XIN with cloudy serosanguineous drainage
Patient has a burrell catheter: No
Patient has a central line: No
--- NOTE | 2025-01-04 10:51 | W.PN.HOSP.TC ---
Addendum entered and electronically signed by Allie Valladares MD 01/04/25 11:27:
No, acute calculous cholecystitis is not related to/associated with/due to/exacerbated by Mounjaro
Original Note:
Today's Communication/Plan
-
dc to home
Assessment / Plan
Assessment / Plan
Assessment:
RUQ pain, biliary colic vs acute calculous cholecystitis
- US: Cholelithiasis with at least one stone seen in the vicinity of the gallbladder neck. Gallbladder wall top normal. Negative sonographic Rodriguez's sign. No findings to suggest biliary tract dilatation.
- CT: Cholelithiasis. Cannot exclude some mild gallbladder wall thickening/pericholecystic fluid. No findings to suggest biliary tract dilatation.
- GI and GS evaluated
- s/p laparoscopic cholecystectomy 01/03
- dc home today with GS f/u
- pain control
- Abx per GS
DM2 without hyperglycemia
- on Mounjaro 5 mg subcu weekly, has received 3 doses so far. Gallstones predated initiation of Mounjaro.
Essential HTN
- continue Lisinopril
MARSHA
DVT ppx: SCDs
Code: Full
More than 30 minutes spent in discharge including
Final examination of the patient
Summarizing hospital stay
Instructions for continuing care to all relevant caregivers
Preparation of discharge records, prescriptions, and referral forms
Total time spent (in minutes): 41
Anticipated Discharge: Today
Subjective/Interval History
-
Date of Service: January 04, 2025
tolerating diet
pain controlled
no nausea
Objective Data
-
Labs:
Laboratory Results
01/04/25
05:43
WBC 13.2 H
Hgb 14.7
Hct 42.9
Plt Count 184
Sodium 140
Potassium 4.0
Chloride 102
Carbon Dioxide 26
BUN 10
Creatinine 0.6 L
Glucose 131 H
Calcium 8.4
Total Bilirubin 1.2
AST 36
ALT 35
Alkaline Phosphatase 57
Vital Signs:
Vital Signs
Temp Pulse Resp BP Pulse Ox
99.3 F 86 17 150/89 97
01/04/25 07:03 01/04/25 07:03 01/04/25 07:03 01/04/25 07:03 01/04/25 07:25
I&O
01/03/25 01/04/25 01/05/25
06:59 06:59 06:59
Intake Total 1060 / 1060 50 / 50
Output Total 0 / 0
Balance 1060 / 1060 50 / 50
Physical Exam
-
General: No Apparent Distress
HEENT: Normocephalic and Atraumatic
Respiratory: Negative Wheezes
Cardiac: Regular Rhythm
GI: Soft, Nontender and Other (XIN drain)
Neuro: AO x 3
Psych: Calm
Data Reviewed
-
Total Time Spent with Patient (in minutes): 42
Labs: Labs Reviewed by me
--- NOTE | 2025-01-04 10:54 | W.DS.TRANS ---
DC Summary - Base Filler
-
Discharge Instructions:
Discharge Diagnosis/Procedures Acute cholecystitis. Laparoscopic
cholecystectomy with cholangiogram.
Diet No restrictions
Activity No strenuous activity
Driving Restrictions As prior to admission
Bathing Restrictions OK to Shower
Instructions:
Stand-Alone Forms:
Changes to Home Medications: No
Discharge Medications:
DC Medications w/original date entered in [facility]
escitalopram oxalate 10 mg tablet 10 mg PO DAILY 06/04/21
lisinopril 10 mg tablet 10 mg PO DAILY 06/04/21
tirzepatide 5 mg/0.5 mL subcutaneous pen injector (Mounjaro) 5 mg SC QWEEK 01/01/25
acetaminophen 325 mg tablet 650 mg (2 x 325 mg) PO Q6HPRN PRN mild pain #14 tabs 01/04/25
amoxicillin 500 mg-potassium clavulanate 125 mg tablet (Augmentin) 1 tab PO Q12H #8 tabs 01/04/25
ibuprofen 600 mg tablet 600 mg PO Q6H PRN pain #14 tabs 01/04/25
tramadol 50 mg tablet 25 mg (1/2 x 50 mg) PO Q6HPRN PRN severe pain/breakthrough pain #8 tabs 01/04/25
Home Medication Changes
Pending Results: No
Total time spent discharging patient (in min): 41
--- NOTE | 2025-01-04 11:12 | PN.CDI ---
CDI
- -
CDI:
Physician Documentation Request
Admit Date: 01/01/25 23:35
Dear Doctor Blaine,
01/03 Patient underwent Laparoscopic Cholecystectomy with Cholangiogram for Acute cholecystitis. Operative findings 'The patient seem to have a single large roughly 3 cm gallstone in the neck of the gallbladder.....'
Patient recently started Mounjaro.
Hospitalist note states 'biliary colic vs acute calculous cholecystitis'
Please clarify the relationship between these conditions:
Yes, acute calculous cholecystitis is related to/associated with/due to/exacerbated by Mounjaro
No, acute calculous cholecystitis is not related to/associated with/due to/exacerbated by Mounjaro
Unable to determine
Use of terms such as suspected, likely, concern for, or probable (associated with a specific diagnosis that is being evaluated, monitored, or treated as if it exists) are acceptable and can be coded in the inpatient setting, when documented at the
time of discharge.
Thank you,
Anila Duque RN, BSN
CDI Specialist
tiger text
Please use your independent medical judgment in providing your response.
--- NOTE | 2025-01-04 11:54 | CM ---
CM following re: discharge planning.
Reviewed pt's chart, met with pt.
Pt is POD # 1from a laparoscopic cholecystectomy and cholangiogram for acute cholecystitis. Pt reports he is doing well and knows how to care for XIN drain. pt declined VN services.
Discharge order noted. Pt is aware and he stated he will drive home./ OBS status reviewed, OBS letter placed on chart, pt has a copy.
D/C plan: home with no needs. Will drive home
== END 2025-01-04 11:55 | disposition home or self-care (01) ==
LOC: PACU 23:35
PROVIDERS: Emergency Medicine; Hospitalist; Physician Assistant Medical; ATTENDING PHYSICIAN Internal Medicine; CONSULT PHYSICIAN Internal Medicine; CONSULT PHYSICIAN Surgery; EMERGENCY PHYSICIAN Emergency Medicine; FAMILY PHYSICIAN Internal Medicine
DX: K80.10 Calculus of gallbladder with chronic cholecystitis without obstruction (principal); K81.0 Acute cholecystitis
CPT/HCPCS: 47563; 88304; 74177; 74300; 76000; 76700; 80053; 83690; 84484; 85025; 85027; 93005; 96361; 96374; 96375; 99285; A4300; C1776; G0378; Q9967